=== PATIENT | female | born 1995 | race Caucasian/White ===

== ENCOUNTER → 2018-01-09 | Outpatient (CLI) | payer OTHER ==
[~2018-01-09] VITALS: Ht 157.5 cm; Wt 86.0 kg
[~2018-01-09] MED LIST: AUGMENTIN875 MG PO; DOXYCYCLINE HY100 MG PO; HYDROCODON-ACE1 EAC7 PO; KLONOPIN0.5 M1; LEVOCETIRIZINE D5 MG PO; MELATONIN10 M1 PO; NAPROSYN500 MG PO; NAPROXEN500 MG PO; SINGULAIR10 MG PO; TOPAMAX50 MG PO; ZOFRAN4 MG PO; ZOLOFT50 MG PO
[2018-01-09 16:19] VITALS: BP 117/72
== END | disposition home or self-care (01) ==
LOC: IVINF 16:09
DX: K52.9 Noninfective gastroenteritis and colitis, unspecified (principal)
CPT/HCPCS: 96360; J7030